=== PATIENT | female | born 1940 | race Caucasian/White ===

== ENCOUNTER → 2017-06-06 20:35 | Outpatient (CLI) | payer MEDICARE, BC | END | disposition home or self-care (01) | LOC: D.MAMMO 15:45 | DX: Z12.31 Encounter for screening mammogram for malignant neoplasm of breast (principal) ==

== ENCOUNTER → 2018-07-03 18:04 | Outpatient (CLI) | payer MEDICARE, BC | END | disposition home or self-care (01) | LOC: D.MAMMO 06-16 09:30 | DX: Z12.31 Encounter for screening mammogram for malignant neoplasm of breast (principal) ==

== ENCOUNTER 2019-07-18 12:42 | Emergency (ER) | payer MEDICARE, BC ==
[~2019-07-18] VITALS: Ht 154.9 cm; Wt 91.4 kg
[2019-07-18 12:55] VITALS: Ht 154.9 cm; Wt 91.4 kg
[2019-07-18] MEDS ORDERED: SYNTHROID25 MCG (12:56)
[2019-07-18] MEDS ORDERED: POTASSIUM99 M1 (12:56)
[2019-07-18] MEDS ORDERED: LOPRESSOR25 MG (12:56)
[2019-07-18] MEDS ORDERED: BAYER CHEWABLE81 MG (12:59)
[2019-07-18] MEDS ORDERED: NORVASC2.5 MG (12:59)
[2019-07-18] MEDS ORDERED: LISINOPRIL-HCT1 EAC8 (12:59)
[2019-07-18 15:54] VITALS: BP 150/87
== END 2019-07-18 15:54 | disposition home or self-care (01) ==
LOC: D.ER 12:42
DX: S80.12XA Contusion of left lower leg, initial encounter (principal); W19.XXXA Unspecified fall, initial encounter; Y93.9 Activity, unspecified; Y92.096 Garden or yard of other non-institutional residence as the place of occurrence of the external cause; E11.9 Type 2 diabetes mellitus without complications; E07.9 Disorder of thyroid, unspecified; I10 Essential (primary) hypertension; M79.662 Pain in left lower leg

== ENCOUNTER 2021-02-09 11:45 | Outpatient (CLI) | payer MEDICARE, BC ==
[2019-07-18 12:55] VITALS: BMI 38.0
[~2021-02-09 11:45] MED LIST: BAYER CHEWABLE81 MG; LISINOPRIL-HCT1 EAC8; LOPRESSOR25 MG; NORVASC2.5 MG; POTASSIUM99 M1; SYNTHROID25 MCG
== END 2021-02-09 23:59 | disposition home or self-care (01) ==
LOC: D.MAMMO 11:45
PROVIDERS: ATTEND Family Medicine
DX: Z12.31 Encounter for screening mammogram for malignant neoplasm of breast (principal)